=== PATIENT | male | born 1950 | race Caucasian/White ===

== ENCOUNTER 2025-04-26 09:53 | Outpatient (CLI) | payer OTHER, SELFPAY | END 2025-04-26 09:54 | disposition home or self-care (01) | PROVIDERS: Visit Provider Family Medicine | DX: E03.9 Hypothyroidism, unspecified (principal); E55.9 Vitamin D deficiency, unspecified; E78.5 Hyperlipidemia, unspecified; I10 Essential (primary) hypertension; Z12.5 Encounter for screening for malignant neoplasm of prostate | CPT/HCPCS: 80053; 80061; 82306; 84443; G0103 ==

== ENCOUNTER 2025-07-03 08:44 | Outpatient (CLI) | payer OTHER, SELFPAY | END 2025-07-03 08:45 | disposition home or self-care (01) | LOC: NFLDREF 07-04 03:01 | PROVIDERS: PCP Family Medicine; Referring Provider Family Medicine; Visit Provider Family Medicine | DX: E03.9 Hypothyroidism, unspecified (principal); E78.5 Hyperlipidemia, unspecified; R53.83 Other fatigue | CPT/HCPCS: 80061; 84443 ==